=== PATIENT | male | born 1940 | race Caucasian/White ===

== ENCOUNTER → 2016-09-11 | Day surgery (SDC) | payer MEDICARE ==
[~2016-09-11] MED LIST: AMIO200T2 PO; APRIDA SQ; ASPI-424 PO; ASPI325T4 PO; ASPI81TA2 PO; BENA40TA2 PO; CEFT2VIA4 IJ; CLOP75TA PO; EPHEDRINE PF IN SALINE 50 MG/5 ML DISP.SYRIN. IV ONE; FURO40TA4 PO; HYDR12.58 PO; INSU100I13 SQ; INSU100V8 SQ; INSU100V9 SQ; IRON150C3 PO; IV NORMAL SALINE 1000ML BAG 1,000 ML IV SCH; IV RINGERS,LACTATED 1000ML 1,000 ML IV SCH; LIDOCAINE 2% PF Vial for OR 5 ML VIAL. ONE; LOVA20TA2 PO; METF500T4 PO; METO25TA4 PO; MULT-245 PO; NIFE30TA17 PO; NIFE60TA12 PO; NITR0.4T SL; OMEP40CA5 PO; OXYC-244 PO; POTA20TA12 PO; PROPOFOL 40 ML IV ONE
[2016-09-11 08:25] VITALS: BP 137/52
--- NOTE | 2016-09-14 13:27 | PATHOLOGY ---
PATHOLOGY REPORT * * * * * * * * FINAL DIAGNOSIS: A. Colon biopsy, descending colon polyp: - Tubular adenoma. B. Colon biopsy, sigmoid colon polyps: - Hyperplastic polyp. COMMENT: There is no high grade dysplasia or evidence of malignancy. (JPM:csd; d/t: 09/14/2016) REPORT ELECTRONICALLY SIGNED BY: Jin Hollis M.D. DATE/TIME: 09/14/2016 13:26 * * * * * * * * GROSS PATHOLOGY: A. Received in formalin labeled "Kanu Baird, descending colon polyp," is a segment of villasenor soft tissue measuring 0.7 cm in maximum dimension. The specimen is submitted entirely in cassette A1. B. Received in formalin labeled "Kanu Baird, sigmoid colon polyps," is a segment of villasenor soft tissue measuring 0.5 cm in maximum dimension. The specimen is submitted entirely in cassette B1. Upon careful inspection, no additional tissue is found remaining within the container. (CAA; 09/11/2016) INITIAL CPT CODE(S): A; 34746 B; 32525 Professional services performed by [email or web address] [address] Technical services performed by [email or web address] at [address] [place] [address]. SPECIMEN(S) RECEIVED: A.Descending colon polyp B.Sigmoid colon polyps CLINICAL HISTORY: History of polyps PATIENT: KANU BAIRD /AGE: 701/13/1940 (Age: 76) PATIENT #: [id number] ALT CASE #: SPECIMEN COLLECTION DATE: 09/11/2016 SPECIMEN RECEIVED DATE: 09/11/2016 [facility] - [id number] [place] [address] - PHONE: [phone] * * * END OF REPORT * * *
== END | disposition home or self-care (01) ==
LOC: ENDOS 05:58
PROVIDERS: ATTEND Internal Medicine Gastroenterology
DX: K64.0 First degree hemorrhoids (principal); D12.4 Benign neoplasm of descending colon; D12.5 Benign neoplasm of sigmoid colon; K57.30 Diverticulosis of large intestine without perforation or abscess without bleeding; I10 Essential (primary) hypertension; E11.9 Type 2 diabetes mellitus without complications; E78.00 Pure hypercholesterolemia, unspecified; M19.90 Unspecified osteoarthritis, unspecified site; D64.9 Anemia, unspecified; Z87.891 Personal history of nicotine dependence
CPT/HCPCS: 45385; 82947; J2704

== ENCOUNTER 2016-11-17 07:35 | Observation (INO) | payer BC, MEDICARE ==
[2016-11-17] VITALS (9 sets, daily range): BP systolic 112–123; BP diastolic 49–57
[~2016-11-17] VITALS: Ht 177.8 cm; Wt 126.1 kg
[~2016-11-17 07:35] MED LIST changes: +ASPI-630 PO; -ASPI325T4 PO; +ASPI325T8 PO; -ASPI81TA2 PO; -EPHEDRINE PF IN SALINE 50 MG/5 ML DISP.SYRIN. IV ONE; +HYDROmorphone 2 MG/ML VIAL IV PRN; +IRON150C15 PO; -IRON150C3 PO; -IV NORMAL SALINE 1000ML BAG 1,000 ML IV SCH; +LIDOCAINE 1% 1 ML SYRINGE. ID PRN; -LIDOCAINE 2% PF Vial for OR 5 ML VIAL. ONE; +MORPHINE SULFATE 2 MG/ML DISP.SYRIN. IV PRN; +ONDANSETRON PF 4 MG/2 ML VIAL. IV PRN; -OXYC-244 PO; +OXYC-327 PO; +PROCHLORPERAZINE 10 MG/2 ML VIAL. IV PRN; -PROPOFOL 40 ML IV ONE; +fentaNYL PF VIAL 100 MCG/2 ML VIAL IV PRN
[2016-11-17 08:26] LABS: BASO % 1 % (0-3); EOS % 4 % (0-3); LYMPH % 24 % (24-48); MEAN CORPUSCULAR HEMOGLOBIN 33 pg (25-35); MEAN CORPUSCULAR HGB CONC 32 g/dL (31-37); MEAN CORPUSCULAR VOLUME 102 fL (79-100); MONO % 11 % (0-9); NEUT % 61 % (31-73); PLATELET COUNT 81 x10^3/uL (140-400); RED BLOOD COUNT 2.45 x10^6/uL (4.30-5.70); RED CELL DISTRIBUTION WIDTH 15.1 % (11.5-14.5)
[2016-11-17 08:31] LABS: BILIRUBIN,URINE NEGATIVE (NEG); GLUCOSE,URINE 500 mg/dL (NEG); NITRITE,URINE NEGATIVE (NEG); PH,URINE 5.5; PROTEIN,URINE 30 mg/dL (NEG-TRACE)
[2016-11-17 08:32] LABS: BACTERIA,URINE MANY /HPF (0-FEW); RBC,URINE 0 /HPF (0-2)
[2016-11-17] MEDS ORDERED: GENTAMICIN SULFATE 80 MG in IV NORMAL SALINE 100ML 100 ML IV ONE (09:00)
[2016-11-17] MEDS ORDERED: LIDOCAINE 2% PF Vial for OR 5 ML VIAL. ONE (09:03)
[2016-11-17] MEDS ORDERED: PROPOFOL 20 ML IV ONE (09:03)
[2016-11-17 09:09] LABS: CALCIUM 8.8 mg/dL (8.5-10.1); CREATININE 1.4 mg/dL (0.7-1.3); GFR 49.5; POTASSIUM 3.6 mmol/L (3.5-5.1)
[2016-11-17] MEDS ORDERED: DEXAMETHASONE SOD PHOS 20 MG/5 ML VIAL. ONE (09:11)
[2016-11-17] MEDS ORDERED: ONDANSETRON PF 4 MG/2 ML VIAL. ONE (09:11)
[2016-11-17] MEDS ORDERED: PHENYLEPHRINE in 0.9% NACL PF 1 MG/10 ML DISP.SYRIN. IV ONE (09:12)
[2016-11-17] MEDS ORDERED: SEVOFLURANE 31 TO 60 MINUTES. IH ONE (09:28)
[2016-11-17] MEDS ORDERED: fentaNYL PF VIAL 100 MCG/2 ML VIAL ONE (09:28)
[2016-11-17] MEDS ORDERED: diphenhydrAMINE HCL 25 MG CAPSULE PO PRN (09:45)
[2016-11-17] MEDS ORDERED: NITROGLYCERIN SUBLINGUAL 0.4 MG BOTTLE OF 25. SL SCH (09:45)
[2016-11-17] MEDS ORDERED: HYDROcodone/APAP 5/325MG 1 TAB TABLET PO PRN (09:45)
[2016-11-17] MEDS ORDERED: 0.9 % SODIUM CHLORIDE 10 ML DISP.SYRIN. IV PRN (09:45)
[2016-11-17] MEDS ORDERED: MAG HYDROX/ALUMINUM HYD/SIMETH 30 ML ORAL.SUSP PO PRN (09:45)
[2016-11-17] MEDS ORDERED: ACETAMINOPHEN 325 MG TABLET. PO PRN (09:45)
[2016-11-17] MEDS ORDERED: ONDANSETRON PF 4 MG/2 ML VIAL. IV PRN (09:45)
[2016-11-17] MEDS ORDERED: NALOXONE 0.4 MG/ML VIAL. IV PRN (09:45)
--- NOTE | 2016-11-17 09:53 | PDOC ---
BRIEF OPERATIVE NOTE Date: November 17, 2016 Pre-Op Diagnosis Difficulty voiding, meatal stenosis Post-Op Diagnosis same plus urethral stricture Procedure Performed Meatotomy, cystoscopy urethral dilation Surgeon skylar Anesthesia Type: General Specimens Obtained None Findings meatal stenosis, urethral stricture disease Complications ANone Additional Remarks 20 Fr bolden to dd ABRAN Albarran DO November 17, 2016 09:53
--- NOTE | 2016-11-17 10:25 | OP ---
DATE OF SURGERY: 11/17/2016 PREOPERATIVE DIAGNOSES: Difficulty voiding, urinary retention, meatal stenosis. POSTOPERATIVE DIAGNOSES: Difficulty voiding, urinary retention, meatal stenosis plus urethral stricture disease. PROCEDURE: Meatotomy, cystoscopy, urethral dilation. SURGEON: Abran Mohan DO. ANESTHESIA: General. INDICATIONS AND JUDGMENT: This is a 76-year-old male with a history of extreme difficulty voiding and chronic urinary retention. He was seen in the office. I tried to perform cystoscopy, but he had severe meatal stenosis which could not be resolved in the office. Therefore, it was felt that he should be brought to the hospital for meatotomy, cystoscopy, dilation. This was explained to the patient. He appeared to understand and was agreeable. DESCRIPTION OF PROCEDURE: The patient was preloaded with IV Rocephin and gentamicin due to heart valve. He was then taken to the operating room and placed on the operating room table, given a general anesthetic and then placed in a dorsal lithotomy position using Schuyler stirrups since we do not have a cystoscopy table. I attempted to pass very small sounds into the meatus and this was unsuccessful. I tried to pass a wire and I could not get the wire through the meatus. Therefore, I utilized a No. 12 blade, blade to incise the meatus at the 12 o'clock position, which helped to open the meatus. Then I used sounds beginning with 12-Italian and advancing to 24-Italian to open up the meatus. I then used a rigid 21-Italian cystoscope and was able to advance this into the meatus and into the urethra. He had some soft strictures in the urethra; therefore, the scope was removed and I dilated the urethra successfully with 24-Italian. I then reinserted the cystoscope and was now able to pass the cystoscope without difficulty into the prostate. The patient has a very small prostate, 10-15 grams. It was not obstructing in nature. The bladder was drained. A sample of urine was sent for culture and sensitivity. There is no evidence of tumor, negative for calculi within the bladder, the ureteral orifices were normal. The scope was then removed. Once again, I dilated the meatus and urethra. Following this, I placed a 20-Italian 2-way Capps catheter into the urethra and into the bladder without difficulty. 10 mL balloon was filled and this was connected to a dependent drainage bag. The patient tolerated the procedure well. He was sent to recovery room in satisfactory condition. Plans will be to place the patient in observation bed. His creatinine has been elevated and I am going to have Nephrology evaluate him before he goes home. ABRAN MOHAN DO DR: ADRYAN/emma JOB#: [id number] / [id number]
[2016-11-17] MEDS ORDERED: IV NORMAL SALINE 1000ML BAG 1,000 ML IV SCH (12:00)
[2016-11-17] MEDS: INSULIN ASPART 300 UNITS/3 ML INSULN.PEN SQ SCH ×2 (12:50→17:25)
[2016-11-17] MEDS ORDERED: CEPHALEXIN 250 MG CAPSULE. PO SCH (14:00)
--- NOTE | 2016-11-17 15:54 | DISCH ---
DISCHARGE INSTRUCTIONS Condition on Discharge Condition on Discharge: Stable Activity After Discharge Activity Instructions for Disc: Activity as tolerated Driving Instructions after Dis: Do not drive today Diet after Discharge Diet after Discharge: Regular Wound Incision Care Other wound/incision instructi: Patient may shower with catheter Contacting the DR. after DC Call your doctor for: Concerns you may have Follow-Up Follow up with: Dr Mohan's office will call for you to come in for catheter removal ABRAN MOHAN DO November 17, 2016 15:54
[2016-11-17] MEDS ORDERED: metFORMIN 500 MG TABLET PO SCH (17:00)
[2016-11-17] MEDS ORDERED: METOPROLOL TART IMMED RELEASE 25 MG TABLET. PO SCH (21:00)
[2016-11-17] MEDS ORDERED: INSULIN DETEMIR 300 UNITS/3 ML INSULN.PEN. SQ SCH (21:00)
--- NOTE | 2016-11-18 00:21 | DS ---
DATE OF DISCHARGE: 11/17/2016 FINAL DIAGNOSES: 1. Meatal stenosis. 2. Urethral stricture. 3. Difficulty voiding. OPERATIONS AND PROCEDURES: Meatotomy, cystoscopy, and urethral dilation. This is summary of the patient's hospital course. Well documented history and physical can be found within the body of the chart. Briefly, this 76-year-old male was experiencing extreme difficulty voiding. He was found to have severe meatal stenosis. Therefore, he was brought to surgery today. Under general anesthesia, the patient underwent a meatotomy as well as cystoscopy and urethral dilation. At the conclusion of the case, an indwelling 20-Khmer Capps catheter was left in place connected to dependent drainage bag. Following the procedure, the patient was placed in observation bed. He had a history of renal insufficiency and I wanted to review his lab work and see if his creatinine levels had improved. The patient's creatinine level was 1.4, which was much better than it was several weeks ago when it was approximately 2.3. Therefore, it was decided that the patient could be discharged the afternoon of his procedure. He is doing very well. The urine color was isidra in color. He will go home with an indwelling Capps catheter. He is going to have a dependent drainage bag and a leg bag. He was given instructions with respect to activity. We will see the patient sometime next week in the office to remove the catheter. I wanted to leave it in place so that the scar tissue would just not reoccur immediately upon catheter removal. That was explained to the patient. He appears to understand and is agreeable. The patient's condition upon discharge was improved. ABRAN MOHAN DO DR: ADRYAN/emma JOB#: [id number] / [id number]
[2016-11-18] MEDS ORDERED: PANTOPRAZOLE 40 MG TABLET.DR. PO SCH (07:30)
[2016-11-18] MEDS ORDERED: LISINOPRIL 40 MG TABLET. PO SCH (09:00)
[2016-11-18] MEDS ORDERED: POTASSIUM CHLORIDE 20 MEQ TABLET.ER. PO SCH (09:00)
[2016-11-18] MEDS ORDERED: ATORVASTATIN CALCIUM 10 MG TABLET. PO SCH (09:00)
== END 2016-11-17 18:00 | disposition home or self-care (01) ==
LOC: SURG 07:35 → 4 NORTH 09:50
PROVIDERS: ADMIT Urology; ATTEND Urology
DX: R39.198 Other difficulties with micturition (principal); R33.9 Retention of urine, unspecified; N35.9 Urethral stricture, unspecified
CPT/HCPCS: 36415; 53020; 53899; 80048; 81001; 82947; 85027; 87086; 96372; C1769; G0378; G0379; J0690; J1100; J1580; J1815; J2370; J2405; J2704; J3010; J7030; 82962

== ENCOUNTER → 2017-01-22 | Outpatient (CLI) | payer BC ==
[2017-01-22] VITALS (7 sets, daily range): BP systolic 117–134; BP diastolic 58–75
[~2017-01-22] MED LIST changes: +ASPI-482 PO; +BENA20TA2 PO; +DICL100G18 TP; +FINA5TAB4 PO; -HYDROmorphone 2 MG/ML VIAL IV PRN; -IV RINGERS,LACTATED 1000ML 1,000 ML IV SCH; -LIDOCAINE 1% 1 ML SYRINGE. ID PRN; -MORPHINE SULFATE 2 MG/ML DISP.SYRIN. IV PRN; -ONDANSETRON PF 4 MG/2 ML VIAL. IV PRN; -PROCHLORPERAZINE 10 MG/2 ML VIAL. IV PRN; +TAMS0.4C2 PO; -fentaNYL PF VIAL 100 MCG/2 ML VIAL IV PRN
[2017-01-22 10:43] LABS: HEMATOCRIT 23.1 % (39.0-53.0); HEMOGLOBIN 7.4 g/dL (13.0-17.5)
== END | disposition home or self-care (01) ==
LOC: OPS 10:12
PROVIDERS: ATTEND Family Medicine
DX: D50.9 Iron deficiency anemia, unspecified (principal)
CPT/HCPCS: 36415; 36430; 85014; 85018; 86850; 86900; 86901; 86920; P9016

== ENCOUNTER → 2017-03-19 | Outpatient (CLI) | payer BC ==
[2017-03-19] VITALS (7 sets, daily range): BP systolic 120–142; BP diastolic 58–66
[2017-03-19 10:48] LABS: HEMATOCRIT 20.6 % (39.0-53.0); HEMOGLOBIN 6.5 g/dL (13.0-17.5)
== END | disposition home or self-care (01) ==
LOC: OPS 10:06
PROVIDERS: ATTEND Family Medicine
DX: D50.0 Iron deficiency anemia secondary to blood loss (chronic) (principal)
CPT/HCPCS: 36415; 36430; 85014; 85018; 86850; 86900; 86901; 86920; P9016